=== PATIENT | female | born 1995 ===

== ENCOUNTER 2018-01-07 17:12 | Emergency (ER) | payer OTHER ==
[2018-01-07 17:13] VITALS: BMI 25.6
[2018-01-07 17:28] VITALS: TEMP 99.1
--- NOTE | 2018-01-07 18:27 | ED PDOC ---
Arrival/HPI - General Chief Complaint: Upper Extremity Problem/Injury Time Seen by Provider: 01/07/18 18:20 Historian: Patient - History of Present Illness Narrative History of Present Illness (Text): 01/07/18 18:26 This 22 yo female presents to this ED c/o right hand injury and pain x [employer]. Patient stated while using a dumbbell, her hand was twisted by the weight. Patient is right hand dominant. Denies other complains. Time/Duration: Prior to Arrival Quality: Aching Context: Home Past Medical History - Provider Review Nursing Documentation Reviewed: Yes - Infectious Disease Hx of Infectious Diseases: None - Reproductive Menopause: No - Psychiatric Hx Substance Use: No - Anesthesia Hx Anesthesia: No Family/Social History - Physician Review Nursing Documentation Reviewed: Yes Family/Social History: Other (noncontributory) Smoking Status: Never Smoked Hx Alcohol Use: No Hx Substance Use: No Allergies/Home Meds Allergies/Adverse Reactions: Allergies No Known Allergies Allergy (Verified 10/03/15 00:50) Review of Systems - Review of Systems Constitutional: Normal. absent: Fatigue, Weight Change, Fevers, Night Sweats Eyes: Normal ENT: Normal Respiratory: Normal Cardiovascular: Normal Gastrointestinal: Normal Genitourinary Female: Normal Musculoskeletal: Other (right hand and wrist pain) Skin: Normal Neurological: Normal Endocrine: Normal Hemo/Lymphatic: Normal Psychiatric: Normal Physical Exam Vital Signs Temp Pulse Resp BP Pulse Ox 01/07/18 19:30 64 18 115/34 L 98 01/07/18 17:25 99.1 F 88 16 104/59 L 98 Temperature: Afebrile Blood Pressure: Normal Pulse: Regular Respiratory Rate: Normal Appearance: Positive for: Well-Appearing, Non-Toxic, Comfortable Pain Distress: None Mental Status: Positive for: Alert and Oriented X 3 - Systems Exam Head: Present: Atraumatic, Normocephalic Pupils: Present: PERRL Extroacular Muscles: Present: EOMI Conjunctiva: Present: Normal Mouth: Present: Moist Mucous Membranes Neck: Present: Normal Range of Motion Upper Extremity: Present: NORMAL PULSES, Tenderness, Swelling, Neurovascularly Intact, Capillary Refill < 2s, Other ((+) mild swelling and tenderness over right 5th metacarpal area). No: Cyanosis, Edema, Erythema, Temperature Abnormalties, Deformity Lower Extremity: Present: Normal Inspection, Normal ROM Neurological: Present: GCS=15, CN II-XII Intact, Speech Normal, Motor Func Grossly Intact, Normal Sensory Function, Normal Cerebellar Funct, Gait Normal Skin: Present: Warm, Dry, Normal Color. No: Rashes Psychiatric: Present: Alert, Oriented x 3, Normal Insight, Normal Concentration Medical Decision Making ED Course and Treatment: 01/07/18 20:40 Re-evaluation. Patient feels better. Discussed results and plan with patient who expresses understanding. All questions answered and there is agreement with the plan to discharge home with instructions. Patient stable for discharge. Return if symptoms persist or worsen. Patient was recommended to call orthopedist office tomorrow. To keep splint clean and dry. To return to ED if pain worsen. RICE, sling was provided. Patient understood the importance to see orthopedist to find out if she will need surgical procedure. Patient was recommended to avoid using right hand , fall or other hand injury since this could worsen hand fracture. To avoid driving car. Re-evaluation Time: 20:47 Reassessment Condition: Re-examined, Improved - RAD Interpretation Narrative RAD Interpretations (Text): 01/07/18 20:47 Hand x-rays: (+) right 5th proximal metacarpal, minimum displaced Fx. Radiology Orders: 01/07/18 18:32 WRIST, RIGHT 3 VIEWS [RAD] Stat 01/07/18 19:23 HAND RIGHT 3 VIEWS [RAD] Stat - Medication Orders Current Medication Orders: Discontinued Medications Ibuprofen (Motrin Tab) 600 mg PO STAT STA Stop: 01/07/18 18:21 Last Admin: 01/07/18 19:18 Dose: 600 mg MAR Pain/Vitals Document 01/07/18 19:18 YP (Rec: 01/07/18 19:18 YP [facility] [id number] Pain Reassessment Is This A Pain ReAssessment? No Sleep Is patient sleeping during reassessment? No Presence of Pain Presence of Pain Yes Disposition/Present on Arrival - Present on Arrival Any Indicators Present on Arrival: No History of DVT/PE: No History of Uncontrolled Diabetes: No Urinary Catheter: No History of Decub. Ulcer: No History Surgical Site Infection Following: None - Disposition Have Diagnosis and Disposition been Completed?: Yes Diagnosis: Fracture of metacarpal base of right hand, closed Disposition: HOME/ ROUTINE Disposition Time: 20:37 Patient Plan: Discharge Patient Problems: Current Active Problems Problem Status Onset Fracture of metacarpal base of right hand, closed Acute Condition: GOOD Discharge Instructions (ExitCare): Hand Fracture (ED) Additional Instructions: Call Dr. Fili Murdock MD Hand Orthopedist doctor office tomorrow for follow up visit. Keep hand elevated, rest, sling. Take medication as instructed with food. Return to emergency if symptoms worsen, or if pain worsen. Keep splint clean and dry. Do not drive, no not use hand or re-injure hand, do not lift anything with right hand. Prescriptions: Ibuprofen [Motrin] 600 mg PO Q6H PRN #20 tab PRN Reason: Pain, Severe (8-10) Referrals: Merari Cedeno DO [Primary Care Provider] - Follow up with primary Fili Murdock MD [Staff Provider] - Follow up with primary Forms: [facility] ([place]), SCHOOL NOTE, WORK NOTE
[2018-01-07 19:32] VITALS: RESP 18
[2018-01-07 21:01] VITALS: BP 99/53; PULSE 94; O2SAT 99
--- NOTE | 2018-01-08 13:39 | RAD ---
PROCEDURE: Right Wrist Radiographs. HISTORY: pain s/p trauma COMPARISON: None. FINDINGS: BONES: Nondisplaced fracture proximal 5th metacarpal diaphysis. Minimal angulation. No other fracture identified. JOINTS: Normal carpal alignment maintained. SOFT TISSUES: Normal. OTHER FINDINGS: None. IMPRESSION: Nondisplaced fracture proximal 5th metacarpal diaphysis.
--- NOTE | 2018-01-08 13:41 | RAD ---
PROCEDURE: Right Hand Radiographs. HISTORY: pain s/p trauma COMPARISON: None. FINDINGS: BONES: There is a fracture at the base of the metacarpal diaphysis. There is slight overriding of the fracture fragments. There is no gross displacement. There is mild comminution. There are no other acute fractures identified. JOINTS: Normal. No osteoarthritic changes. SOFT TISSUES: Normal. OTHER FINDINGS: None. IMPRESSION: Nondisplaced comminuted fracture proximal 5th metacarpal diaphysis.
== END 2018-01-07 21:01 | disposition home or self-care (01) ==
LOC: ED 17:12
DX: S62.316A Displaced fracture of base of fifth metacarpal bone, right hand, initial encounter for closed fracture (principal); X50.1XXA Overexertion from prolonged static or awkward postures, initial encounter; Y92.009 Unspecified place in unspecified non-institutional (private) residence as the place of occurrence of the external cause

== ENCOUNTER 2019-04-07 21:29 | Emergency (ER) | payer SELFPAY ==
[2019-04-07 21:30] VITALS: BMI 25.6
[2019-04-07 21:47] VITALS: RESP 18; TEMP 98.1; O2SAT 98
--- NOTE | 2019-04-07 22:32 | ED PDOC ---
Arrival/HPI - General Chief Complaint: Back Pain Time Seen by Provider: 04/07/19 22:06 Historian: Patient - History of Present Illness Narrative History of Present Illness (Text): 04/07/19 22:31 A 23 year old female presents to the emergency department complaining of "neck is locked." Patient reports she woke up this morning with right side neck pain, radiating to shoulder, and is unable to abduct her shoulder past 90 degrees. Denies any injuries. Patient denies any weakness/numbness right arm, or any other complaints at this time. Past Medical History - Provider Review Nursing Documentation Reviewed: Yes - Infectious Disease Hx of Infectious Diseases: None - Psychiatric Hx Substance Use: No - Anesthesia Hx Anesthesia: No Hx Anesthesia Reactions: No Hx Malignant Hyperthermia: No Family/Social History - Physician Review Nursing Documentation Reviewed: Yes Family/Social History: No Known Family HX Smoking Status: Never Smoked Hx Alcohol Use: No Hx Substance Use: No Allergies/Home Meds Allergies/Adverse Reactions: Allergies No Known Allergies Allergy (Verified 10/03/15 00:50) Review of Systems - Physician Review All systems were reviewed & negative as marked: Yes - Review of Systems Musculoskeletal: Neck Pain (right side radiating to right shoulder) Neurological: absent: Other (no numbness/weakness to right arm) Physical Exam Vital Signs Reviewed: Yes Vital Signs Temp Pulse Resp BP Pulse Ox 04/07/19 21:30 98.1 F 64 18 115/76 98 Temperature: Afebrile Blood Pressure: Normal Pulse: Regular Respiratory Rate: Normal Appearance: Positive for: Well-Appearing, Non-Toxic, Comfortable Pain Distress: None Mental Status: Positive for: Alert and Oriented X 3 - Systems Exam Head: Present: Atraumatic, Normocephalic Pupils: Present: PERRL Extroacular Muscles: Present: EOMI Conjunctiva: Present: Normal Mouth: Present: Moist Mucous Membranes Neck: Present: Other (right C-spine veterbral tenderness, right trapezius muscle spasm (pain to upper trapezius when AB duct shoudler past 90 degrees), no midline/scapular tenderness.). No: MIDLINE TENDERNESS Respiratory/Chest: Present: Clear to Auscultation, Good Air Exchange. No: Respiratory Distress, Accessory Muscle Use Cardiovascular: Present: Regular Rate and Rhythm, Normal S1, S2. No: Murmurs Abdomen: No: Tenderness, Distention, Peritoneal Signs Back: Present: Normal Inspection Upper Extremity: Present: Normal Inspection, NORMAL PULSES (right arm radial pulse), Neurovascularly Intact, Capillary Refill < 2s. No: Cyanosis, Edema Lower Extremity: Present: Normal Inspection. No: Edema Neurological: Present: GCS=15, CN II-XII Intact, Speech Normal Skin: Present: Warm, Dry, Normal Color. No: Rashes Psychiatric: Present: Alert, Oriented x 3, Normal Insight, Normal Concentration Medical Decision Making ED Course and Treatment: 04/07/19 22:35 Impression: 23 year old female with neck pain right side radiating to right shoulder. Plan: -- Valium -- Toradol -- Reassess and disposition Progress Notes: Patient given valium and toradol. On re-eval patient reports that the medications "took the edge off". Rx written for valium, advised combining with NSAIDs such as ibuprofen at home. Patient verbalized understanding. Advised outpatient followup with PMD. Return to the ED for any new or worsening symptoms. - Medication Orders Current Medication Orders: Discontinued Medications Diazepam (Valium) 5 mg PO ONCE ONE; Protocol Stop: 04/07/19 22:20 Ketorolac Tromethamine (Toradol) 60 mg IM STAT STA Stop: 04/07/19 22:20 - Scribe Statement The provider has reviewed the documentation as recorded by the Nora Carmona Provider Scribe Attestation: All medical record entries made by the Scribe were at my direction and personally dictated by me. I have reviewed the chart and agree that the record accurately reflects my personal performance of the history, physical exam, medical decision making, and the department course for this patient. I have also personally directed, reviewed, and agree with the discharge instructions and disposition. Disposition/Present on Arrival - Present on Arrival Any Indicators Present on Arrival: No History of DVT/PE: No History of Uncontrolled Diabetes: No Urinary Catheter: No History of Decub. Ulcer: No History Surgical Site Infection Following: None - Disposition Have Diagnosis and Disposition been Completed?: Yes Diagnosis: Neck muscle spasm Disposition: HOME/ ROUTINE Disposition Time: 00:36 Condition: STABLE Discharge Instructions (ExitCare): Muscle Spasms (DC) Additional Instructions: EDUARDO OLEA, thank you for letting us take care of you today. Your provider was Veronique Montaño MD and you were treated for NECK INJURY. The emergency medical care you received today was directed at your acute symptoms. If you were prescribed any medication, please fill it and take as directed. It may take several days for your symptoms to resolve. Return to the Emergency Department if your symptoms worsen, do not improve, or if you have any other problems. Please contact your doctor or call one of the physicians/clinics you have been referred to that are listed on the Patient Visit Information form that is included in your discharge packet. Bring any paperwork you were given at discharge with you along with any medications you are taking to your follow up visit. Our treatment cannot replace ongoing medical care by a primary care provider outside of the emergency department. Thank you for allowing the [facility] team to be part of your care today. If you had an X-Ray or CT scan: A Radiologist will review the ED reading if any change in treatment is needed we will contact you. If you had a blood, urine, or wound culture: It will take several days for the results, if any change in treatment is needed we will contact you. If you had an STI test: It will take 48 hours for the results. Please call after 1 week if you have not heard back. Prescriptions: diaZEpam [Valium] 5 mg PO TID PRN #9 tab PRN Reason: Muscle Spasm Forms: [employer] ([place]), SCHOOL NOTE
[2019-04-08 01:07] VITALS: BP 118/75; PULSE 85
== END 2019-04-08 00:36 | disposition home or self-care (01) ==
LOC: ED 21:29
DX: M62.838 Other muscle spasm (principal)